=== PATIENT | female | born 1940 | race Caucasian/White ===

== ENCOUNTER 2019-02-13 17:35 | Emergency (ER) | payer OTHER, MEDICAID ==
[~2019-02-13] VITALS: Ht 167.6 cm; Wt 59.0 kg
[~2019-02-13 17:35] MED LIST: ASPI-1158
[2019-02-13] MEDS ORDERED: KETOROLAC 30MG/ML VIAL IM ONE (19:00)
[2019-02-13 21:45] LABS: CHLORIDE 109 mEq/L (98-107)
[2019-02-13 21:46] LABS: BASOPHILS % 0.2 % (0.0-2.0); EOSINOPHILS % 0.2 % (0.0-5.0); HEMATOCRIT. 40.9 % (36.0-48.0); HEMOGLOBIN. 13.9 g/dL (12.0-16.0); LYMPHOCYTES % 8.7 % (20.0-50.0); MEAN CORPUSCULAR HEMOGLOBIN 31.2 pg (28.0-32.0); MEAN CORPUSCULAR VOLUME 91.6 fL (81.0-99.0); MEAN PLATELET VOLUME 8.3 fl (7.4-10.4); MONOCYTES % 4.4 % (2.0-8.0); NEUTROPHILS % 86.5 % (40.0-76.0); PLATELET 329 x1000/uL (130-400); RED BLOOD CELL COUNT 4.46 mill/uL (4.2-5.4); RED CELL DISTRIBUTION WIDTH 13.9 % (11.6-14.6)
[2019-02-13 21:50] LABS: PARTIAL THROMBOPLASTIN TIME 27.7 sec (23.4-31.0)
[2019-02-13 22:34] VITALS: BP 148/66
== END 2019-02-13 23:05 | disposition short-term general hospital (02) ==
LOC: ER 17:35
DX: M79.18 Myalgia, other site (principal); F17.200 Nicotine dependence, unspecified, uncomplicated; Z96.649 Presence of unspecified artificial hip joint; Z88.0 Allergy status to penicillin
CPT/HCPCS: 36415; 70450; 70486; 72125; 73030; 73060; 73080; 73090; 73100; 80053; 85025; 85610; 85730; 86850; 86900; 86901; 96372; 99285; J1885